=== PATIENT | male | born 2000 | race Caucasian/White ===

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

== ENCOUNTER 2020-03-27 20:41 | Emergency (ER) | payer BC ==
[~2020-03-27] VITALS: Ht 165.1 cm; Wt 64.0 kg
[~2020-03-27 20:41] MED LIST: BUPR-102 MT; ESCI10TA MT
[2020-03-27] MEDS ORDERED: LORAZEPAM 2MG/ML CPJ IM ONE ×2 (21:45→22:15)
[2020-03-28 00:01] LABS: HEMATOCRIT. 42.4 % (42.0-52.0); HEMOGLOBIN. 14.6 g/dL (14.0-18.0); MEAN CORPUSCULAR VOLUME 87.4 fL (80.0-94.0); MEAN PLATELET VOLUME 7.8 fl (7.4-10.4); PLATELET 286 x1000/uL (130-400); RED BLOOD CELL COUNT 4.85 mill/uL (4.7-6.1); RED CELL DISTRIBUTION WIDTH 13.3 % (11.6-14.6)
[2020-03-28 00:08] LABS: CHLORIDE 108 mEq/L (98-107)
[2020-03-28 00:12] LABS: ETHANOL BLOOD < 10 mg/dL
[2020-03-28 00:21] LABS: PLATELET ESTIMATE NORMAL
[2020-03-28] MEDS ORDERED: SODIUM CHLORIDE 0.9% 1,000 ML IV ONE ×2 (01:00→08:30)
[2020-03-28] MEDS ORDERED: OLANZAPINE 10 MG/VIAL IM ONE (01:00)
[2020-03-28] MEDS ORDERED: LORAZEPAM 2MG/ML CPJ IV ONE (01:00)
[2020-03-28 01:18] LABS: *AMPHETAMINES SCREEN URINE NEGATIVE (NEGATIVE)
[2020-03-28 01:19] LABS: *BARBITURATES SCREEN URINE NEGATIVE (NEGATIVE); *BENZODIAZEPINES SCREEN URINE PRESUMTIVE POSITIVE (NEGATIVE); *COCAINE SCREEN URINE NEGATIVE (NEGATIVE); CANNABINOID URINE SCREEN PRESUMTIVE POSITIVE (NEGATIVE); METHADONE URINE SCREEN NEGATIVE (NEGATIVE); OPIATES URINE SCREEN NEGATIVE (NEGATIVE); PHENCYCLIDINE URINE SCREEN NEGATIVE (NEGATIVE)
[2020-03-28 06:24] LABS: CLARITY URINE TURBID (CLEAR); COLOR URINE DARK YELLOW (YELLOW); KETONES URINE TRACE (NEGATIVE); LEUKOCYTE ESTERASE URINE TRACE (NEGATIVE); NITRITE URINE NEGATIVE (NEGATIVE); OCCULT BLOOD URINE TRACE (NEGATIVE); PH URINE 5.5 (4.5-8.0); PROTEIN URINE 2+ (NEGATIVE); SPECIFIC GRAVITY URINE 1.027 (1.005-1.030)
[2020-03-29 10:54] LABS: HEMATOCRIT 42.5 % (42.0-52.0); HEMOGLOBIN 14.5 g/dL (14.0-18.0); MEAN CORPUSCULAR VOLUME 88.1 fL (80.0-94.0); PLATELET 264 x1000/uL (130-400); RED BLOOD CELL COUNT 4.82 mill/uL (4.7-6.1); RED CELL DISTRIBUTION WIDTH 13.4 % (11.6-14.6)
[2020-03-29 17:25] VITALS: BP 125/57
== END 2020-03-29 17:30 | disposition home or self-care (01) ==
LOC: ER 20:41
DX: F23 Brief psychotic disorder (principal); R45.851 Suicidal ideations; R45.1 Restlessness and agitation; F12.10 Cannabis abuse, uncomplicated; F32.9 Major depressive disorder, single episode, unspecified; Z75.1 Person awaiting admission to adequate facility elsewhere; Z78.1 Physical restraint status
CPT/HCPCS: 36415; 71045; 80053; 80320; 85025; 85027; 93005; 96361; 96372; 96374; 99285; J2060; J3490; J7030; G0480